=== PATIENT | female | born 1970 | race Caucasian/White ===

== ENCOUNTER 2020-12-13 11:09 | Inpatient (IN) | payer SELFPAY ==
[~2020-12-13] VITALS: Ht 165.1 cm; Wt 79.8 kg
--- NOTE | 2020-12-13 11:23 | NUR ---
DR SOL AT THE BEDSIDE
--- NOTE | 2020-12-13 11:25 | NUR ---
The patient is [id number], from urgent care, c/o palpitation and dizziness on and off x 10 days, was at [facility] the last 2 weeks for same reason. The patient denies any having pain. In room air and denies SOB. Respiration regular and unlabored. The patient is attached to the monitor. Will continue to monitor the patient.
[2020-12-13 11:49] LABS: BASOPHILS # (AUTO) 0.1 K/uL (0.0-0.2); BASOPHILS % (AUTO) 0.6 % (0.0-2.0); EOSINOPHILS % (AUTO) 0.2 % (0.0-6.0); HEMATOCRIT 40 % (33-45); HEMOGLOBIN 13.3 g/dL (11.5-14.8); LYMPHOCYTES % (AUTO) 10.1 % (20.0-44.0); MEAN CORPUSCULAR HGB CONC 33 g/dl (31.0-36.0); MEAN CORPUSCULAR VOLUME 84 fL (82-100); MONOCYTES # (AUTO) 0.5 K/uL (0.1-1.30); MONOCYTES % (AUTO) 4.6 % (2.0-12.0); NEUTROPHILS # (AUTO) 8.8 K/uL (1.8-8.9); NEUTROPHILS % (AUTO) 84.5 % (43.0-81.0); PLATELET COUNT (AUTO) 436 K/uL (150-450); RED BLOOD CELL COUNT(AUTO) 4.77 MIL/uL (4.0-5.2); WHITE BLOOD COUNT (AUTO) 10.4 K/uL (4.3-11.0)
[2020-12-13 11:56] LABS: CARBON DIOXIDE 27 mmol/L (21-32); CHLORIDE 104 mmol/L (98-107); CREATININE 0.8 mg/dL (0.6-1.3); GLUCOSE 110 mg/dL (74-106); POTASSIUM 3.9 mmol/L (3.5-5.1); SODIUM SERUM 141 mmol/L (136-145); UREA NITROGEN, BLOOD 10 mg/dL (7-18)
--- NOTE | 2020-12-13 12:08 | NUR ---
URINE COLLECTED AND SENT TO THE LAB
--- NOTE | 2020-12-13 12:50 | NUR ---
BLOOD PRESSURE 120/84 AND HREAT RATE 157. DR SOL MADE AWARE.
--- NOTE | 2020-12-13 13:00 | NUR ---
VITAL SIGNS STABLE. RESPIRATION REGULAR AND UNLABORED. DENIES PAIN. ATTACHED TO THE MONITOR. WILL CONTINUE TO MONITOR THE PATIENT.
--- NOTE | 2020-12-13 13:32 | NUR ---
COVID SWAB DONE AND SENT TO THE LAB
[2020-12-13] MEDS ORDERED: METH4TAB17 PO (13:44)
[2020-12-13] MEDS ORDERED: ALBU8.5H8 IH (13:44)
[2020-12-13] MEDS ORDERED: DOXY100C2 PO (13:44)
--- NOTE | 2020-12-13 13:48 | NUR ---
DR WAITE AT THE BEDSIDE
--- NOTE | 2020-12-13 15:04 | NUR ---
NURSING SUP GAVE 320-2.
--- NOTE | 2020-12-13 15:18 | NUR ---
REPORT GIVEN TO NURSE DUPREE FROM TELE UNIT
--- NOTE | 2020-12-13 15:38 | NUR ---
THE PATIENT IS TAKEN TO ASSIGNED ROOM IN STABLE CONDITION AND PER ACLS POLICY.
--- NOTE | 2020-12-13 15:40 | NUR ---
RN NOTE RECEIVED PT IN 320-2. TELE MONITOR PLACED AND LEADS CHECKED. PT AWAKE I BED BED. ADMITTED FOR PALPITATIONS, NO CHEST PAIN PRESENT. A/O X4 AND KINYARWANDA SPEAKING. IV LINE FLUSHES WELL. PT IN COMFORTABLE AND SAFE POSITION. WILL CONTINUE TO MONITOR.
[2020-12-13 16:00] VITALS: BP 126/82
[2020-12-13] MEDS ORDERED: NITROGLYCERIN 0.4 MG/TAB BOTTLE SL PRN (16:30)
[2020-12-13] MEDS: METOPROLOL TARTRATE 25 MG TABLET PO SCH (16:43)
--- NOTE | 2020-12-13 17:35 | NUR ---
RN CLOSING NOTE PT AWAKE IN BED RESTING. ON RA WITH NO SOB OR RESPIRATORY DISTRESS PRESENT. A/O X4 AND SINHALA SPEAKING. NO COMPLAINT OF PAIN OF NAUSEA PRESENT. NO CHEST PAIN PRESENT. GUNSTOCK SPRAY UNIT ADJUSTER PRESENT AND LEADS CHECKED. NO EDEMA PRESENT. SELF AMBULATORY WITH BATHROOM PRIVILEGES. SKIN IS INTACT. ON CARDIAC DIET. IV PRESENT ON R AC 20G AND FLUSHES WELL. LABS AND ORDERS REVIEWED. SAFETY MEASURES IN PLACE. SIDE RAILS RAISED. BED LOWERED. CALL LIGHT WITHIN REACH. WILL CONTINUE TO MONITOR.
[2020-12-13 19:31] LABS: THYROID STIMULATING HORMONE 1.459 uIU/mL (0.358-3.74)
[2020-12-13 20:00] VITALS: BP 105/76
--- NOTE | 2020-12-13 20:00 | NUR ---
WINDOW CLERK OPENING NOTES PT WAS SEEN SLEEPING IN BED. AWAKE IN BED RESTING. PATIENT'S ALERT AND ORIENTED X4. PATIENT'S ON RA WITH NO RESPIRATORY DISTRESS PRESENT. PATIENT'S CONNECTED TO A PHOTO MASK INSPECTOR WITH NO CARDIAC DISTRESS NOTED. PATIENT HAS A SALINE LOCK ON HER RAC WHICH IS INTACT, PATENT, AND FLUSHING WELL. PATIENT'S IN NO ACUTE DISTRESS AT THIS TIME. SAFETY MEASURES IN PLACE: BED LOCKED, SIDE RAILS UPX2, AND CALL LIGHT WITHIN REACH OF THE PATIENT. WILL CONTINUE TO MONITOR THE PATIENT.
[2020-12-14] VITALS: BP 102/59
[2020-12-14 04:00] VITALS: BP 102/76
[2020-12-14 06:26] LABS: BASOPHILS % (AUTO) 0.2 % (0.0-2.0); EOSINOPHILS % (AUTO) 0.7 % (0.0-6.0); HEMATOCRIT 39 % (33-45); HEMOGLOBIN 12.9 g/dL (11.5-14.8); LYMPHOCYTES # (AUTO) 1.7 K/uL (0.8-4.8); LYMPHOCYTES % (AUTO) 20.9 % (20.0-44.0); MEAN CORPUSCULAR HGB CONC 33 g/dl (31.0-36.0); MEAN CORPUSCULAR VOLUME 85 fL (82-100); MONOCYTES # (AUTO) 0.6 K/uL (0.1-1.30); NEUTROPHILS # (AUTO) 5.9 K/uL (1.8-8.9); NEUTROPHILS % (AUTO) 71.2 % (43.0-81.0); PLATELET COUNT (AUTO) 394 K/uL (150-450); RED BLOOD CELL COUNT(AUTO) 4.59 MIL/uL (4.0-5.2); WHITE BLOOD COUNT (AUTO) 8.3 K/uL (4.3-11.0)
[2020-12-14 07:03] LABS: CALCIUM, SERUM 8.8 mg/dL (8.5-10.1); CREATININE 0.7 mg/dL (0.6-1.3); MAGNESIUM 2.4 mg/dL (1.8-2.4); PHOSPHORUS 3.6 mg/dL (2.5-4.9); POTASSIUM 4.2 mmol/L (3.5-5.1)
[2020-12-14 08:19] VITALS: BP 104/70
[2020-12-14] MEDS: METOPROLOL TARTRATE 25 MG TABLET PO SCH (08:19)
--- NOTE | 2020-12-14 11:30 | NUR ---
ASSET SPECIALISTSCHOOL OPERATIONS MANAGER NOTE PATIENT DISCHARGED VIA PRIVATE CAR @ 1112. STABLE, A/O X4. ON ROOM AIR - NO SOB NOTED. NO DISTRESS/DISCOMFORT NOTED. ALL EXITCARE AND PATIENT EDUCATION REVIEWED WITH PATIENT. ALL DISCHARGE PAPERWORK GIVEN TO PATIENT IN FOLDER. IV ACCESS REMOVED. WRISTBAND REMOVED. PATIENT ACCOMPANIED TO LOBBY BY MATY. SAVAGE BROUSSARD AND CHARGE NURSE AWARE
== END 2020-12-14 11:12 | disposition home or self-care (01) | DRG 310 ==
LOC: ER 11:12 → TELE 15:22
PROVIDERS: ADMIT Internal Medicine; ATTEND Internal Medicine
DX: I49.9 Cardiac arrhythmia, unspecified (principal); F41.9 Anxiety disorder, unspecified; R76.8 Other specified abnormal immunological findings in serum; Z20.822 Contact with and (suspected) exposure to COVID-19
CPT/HCPCS: 36415; 71045-TC; 80048-TC; 80061-TC; 83735-TC; 84100-TC; 84439-TC; 84443-TC; 84484-TC; 84703-TC; 85025-TC; 87081-TC; 93307-TC; C9803; G0378